=== PATIENT | male | born 1975 | race Caucasian/White ===

== ENCOUNTER 2020-11-21 16:41 | Emergency (ER) | payer OTHER ==
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
== END 2020-11-21 18:14 ==
LOC: MW.ED 16:41
DX: Z04.1 Encounter for examination and observation following transport accident (principal); I10 Essential (primary) hypertension
CPT/HCPCS: 99283

== ENCOUNTER 2022-12-09 17:37 | Emergency (ER) | payer SELFPAY ==
[2022-12-09] MEDS ORDERED: Acetaminophen/oxyCODONE 325-5 MG Tab PO ONE (19:59)
[2022-12-09] MEDS ORDERED: Ibuprofen 600 MG Tab PO ONE (19:59)
== END 2022-12-09 20:14 | disposition home or self-care (01) ==
LOC: MW.ED 17:37
DX: S52.572A Other intraarticular fracture of lower end of left radius, initial encounter for closed fracture (principal); S52.612A Displaced fracture of left ulna styloid process, initial encounter for closed fracture; I10 Essential (primary) hypertension; E03.9 Hypothyroidism, unspecified; W11.XXXA Fall on and from ladder, initial encounter
CPT/HCPCS: 29125; 73110; 73130; 99283; A9270

== ENCOUNTER 2025-03-02 16:22 | Emergency (ER) | payer BC ==
[2025-03-02] MEDS ORDERED: Sodium Chloride 0.9% 2.5 ML Syringe FLUSH PRN (16:23)
[2025-03-02] MEDS ORDERED: Sodium Chloride 0.9% 10 ML Syringe FLUSH PRN (16:23)
[2025-03-02 16:41] LABS: BASE EXCESS VENOUS 0.0 (-2.0-3.0); BICARBONATE,VENOUS 23.0 mEq/L (22-29); PCO2 VENOUS 32.0 mmHG (41-51); PH,VENOUS 7.46 (7.32-7.43); PO2 VENOUS 54.0 mmHG (35-45)
[2025-03-02 16:42] LABS: BASOPHILS ABSOLUTE AUTO 0.06 K/uL (0.00-0.20); BASOPHILS PERCENT AUTO 0.6 % (0.0-1.0); EOSINOPHILS ABSOLUTE AUTO 0.63 K/uL (0.00-0.45); EOSINOPHILS PERCENT AUTO 6.1 % (0.0-6.0); IMMATURE GRAN ABSOLUTE AUTO 0.02 K/uL (0.00-0.05); IMMATURE GRAN PERCENT AUTO 0.2 % (0.0-0.4); LYMPHOCYTES ABSOLUTE AUTO 3.80 K/uL (1.00-4.80); LYMPHOCYTES PERCENT AUTO 36.5 % (24.0-44.0); MEAN PLATELET VOLUME 9.8 fL (9.4-12.4); MONOCYTES ABSOLUTE AUTO 0.87 K/uL (0.00-0.80); MONOCYTES PERCENT AUTO 8.4 % (0.0-8.0); NEUTROPHILS ABSOLUTE AUTO 5.03 K/uL (1.80-7.70); NEUTROPHILS PERCENT AUTO 48.2 % (41.0-71.0); NRBC ABSOLUTE 0.00 K/uL (0.00-0.02); NRBC PERCENT 0.0 /100WBC (0.0-0.2); PLATELET COUNT,PLT 294 K/uL (150-400); RED BLOOD CELL COUNT 5.19 M/uL (4.52-5.90); WHITE BLOOD CELL COUNT,WBC 10.41 K/uL (3.9-11.3)
[2025-03-02 16:56] LABS: INR 0.98 (0.86-1.11); PTT,PARTIAL THROMBOPLSTIN TIME 27.0 SEC (23.9-30.7)
[2025-03-02] MEDS: Iopamidol 755 MG/ML 500 ML Multipack Bottle IVPUSH STA (17:03)
[2025-03-02 17:14] LABS: A/G RATIO 1.1 (0.9-1.6); ALANINE AMINOTRANSFERASE,ALT 71 IU/L (14-63); ASPARTATE AMNIOTRANSFERASE,AST 46 IU/L (15-37); BILIRUBIN TOTAL 0.7 mg/dL (0.2-1.0); BLOOD UREA NITROGEN,BUN 12 mg/dL (7.0-18.0); CARBON DIOXIDE,CO2 24.5 mmol/L (21.0-32.0); CHLORIDE,CL 103 mmol/L (98-107); CREATININE 1.2 mg/dL (0.8-1.3); EST CRCL DRUG DOSING (CG) 72.83 mL/min; GLUCOSE RANDOM 108 mg/dL (74-106); POTASSIUM,K 3.6 mmol/L (3.5-5.1); PRO B-TYPE NATRIUR PEPT,BNPPRO 41 pg/mL (0-125); PROTEIN TOTAL,TP 8.6 g/dL (6.4-8.2); SODIUM,NA 139 mmol/L (136-148); TSH ULTRASENSITIVE 4.09 uIU/mL (0.36-3.74)
[2025-03-02] MEDS: Labetalol 100 MG/20 ML MDV IVPUSH ONE (17:20)
[2025-03-02 17:23] LABS: ESTIMATED GFR 73 mL/min (>60); ETHANOL BLOOD MEDICAL < 3.0 mg/dL
[2025-03-02 17:45] LABS: T4 FREE 1.19 ng/dL (0.76-1.46)
[2025-03-02 17:58] LABS: CHOLESTEROL HDL 39.0 mg/dL (40-60); CHOLESTEROL LDL CALCULATED 109.0 mg/dL (60-180); CHOLESTEROL TOTAL 196.0 mg/dL (50-200); VLDL CHOLESTEROL 48.0 mg/dL (5-55)
[2025-03-02] MEDS: PHENobarbitaL sodium 260 MG in Sodium Chloride 0.9% 100 ML IV ONE (18:11)
[2025-03-02 18:30] LABS: APPEARANCE,URINE CLEAR; GLUCOSE,URINE NEGATIVE (NEGATIVE); OCCULT BLOOD,URINE NEGATIVE (NEGATIVE)
[2025-03-02 18:40] LABS: AMPHETAMINES SCREEN, URINE NEGATIVE (CUTOFF=500); BUPRENORPHINE SCREEN,URINE NEGATIVE (CUTOFF=10); METHADONE SCREEN, URINE NEGATIVE (CUTOFF=200); METHAMPHETAMINES SCREEN, URINE NEGATIVE (CUTOFF=500); OXYCODONE SCREEN,URINE NEGATIVE (CUT0FF=100); PCP SCREEN,URINE NEGATIVE (CUTOFF=25); THC SCREEN,URINE 20 NG/ML NEGATIVE (CUTOFF=50)
== END 2025-03-02 19:12 | disposition left against medical advice (07) ==
LOC: MW.ED 16:22
DX: I10 Essential (primary) hypertension (principal); R25.1 Tremor, unspecified; E78.00 Pure hypercholesterolemia, unspecified; E03.9 Hypothyroidism, unspecified; R20.2 Paresthesia of skin; Z79.890 Hormone replacement therapy; Z79.899 Other long term (current) drug therapy; Z82.3 Family history of stroke
CPT/HCPCS: 36415; 70450; 70496; 70498; 71045; 80053; 80061; 80143; 80179; 80305; 80307; 81003; 82803; 82977; 83605; 83690; 83735; 83880; 84439; 84443; 84484; 85025; 85610; 85730; 87040; 96360; 99284; A9270; J7030; Q9967; 93010; J1920

== ENCOUNTER 2025-03-03 07:46 | Emergency (ER) | payer BC | END 2025-03-03 09:40 | disposition home or self-care (01) | LOC: MW.ED 07:46 | DX: I10 Essential (primary) hypertension (principal); E03.9 Hypothyroidism, unspecified; R53.83 Other fatigue; E78.00 Pure hypercholesterolemia, unspecified; Z79.890 Hormone replacement therapy; Z82.3 Family history of stroke | CPT/HCPCS: 70551; 70551-26; 99283; 99284 ==